=== PATIENT | male | born 1945 | race Caucasian/White ===

== ENCOUNTER 2017-04-21 06:52 | Inpatient (IN) | payer MEDICARE ==
[~2017-04-21 06:52] MED LIST: CEFAZOLIN 2 Gram 2 GM/50 ML BAG IVPB ONE; CELECOXIB 100 MG CAPSULE PO ONE; FAMOTIDINE 20MG TABLET PO ONE; MECLIZINE 25 MG TABLET PO ONE; METOCLOPRAMIDE 10 MG TABLET PO ONE; VANCOMYCIN HCL 1,000 MG in 0.9 % SODIUM CHLORIDE 250ML 250 ML IVPB ONE
[2017-04-21 07:18] LABS: URINE APPEARANCE CLEAR; URINE BILIRUBIN NEGATIVE (NEGATIVE); URINE BLOOD NEGATIVE (NEGATIVE); URINE COLOR YELLOW; URINE GLUCOSE (UA) NEGATIVE (NEGATIVE); URINE KETONE NEGATIVE (NEGATIVE); URINE LEUKOCYTE ESTERASE NEGATIVE (NEGATIVE); URINE NITRITE NEGATIVE (NEGATIVE); URINE PROTEIN NEGATIVE (NEGATIVE); URINE UROBILINOGEN 0.2 E.U./dL (0.20 - 1.00)
[2017-04-21 07:58] LABS: ABO GROUP A; ANTIBODY SCREEN NEGATIVE (NEGATIVE); RH TYPE POSITIVE
[2017-04-21] MEDS ORDERED: BISACODYL 10 MG SUPP RC PRN (10:49)
[2017-04-21] MEDS ORDERED: DIPHENHYDRAMINE HCL 25 MG CAPSULE PO PRN (10:49)
[2017-04-21] MEDS ORDERED: NALOXONE 0.4 MG/1 ML VIAL IVP PRN (10:49)
[2017-04-21] MEDS ORDERED: ACETAMINOPHEN 325 MG TAB PO PRN (10:49)
[2017-04-21] MEDS ORDERED: TRAMADOL HCL 50 MG TABLET PO PRN (10:49)
[2017-04-21] MEDS ORDERED: ACETAMINOPHEN W/ CODEINE 300MG/60MG TABLET PO PRN ×2 (10:49)
[2017-04-21] MEDS ORDERED: ZOLPIDEM TARTRATE 5 MG TABLET PO PRN (10:49)
[2017-04-21] MEDS ORDERED: KETOROLAC 30 MG/ML VIAL IVP PRN ×2 (10:49)
[2017-04-21] MEDS ORDERED: HYDROMORPHONE HCL 2 MG/ML VIAL IM PRN (10:49)
[2017-04-21] MEDS ORDERED: AL HYDROX/MAG HYDROX 30ML UD PO PRN (10:49)
[2017-04-21] MEDS ORDERED: HYDROCODONE/APAP 10/325 TABLET PO PRN (10:49)
[2017-04-21] MEDS ORDERED: MAGNESIUM HYDROXIDE 30 ML UDC PO PRN (10:49)
[2017-04-21] MEDS ORDERED: ONDANSETRON HCL IV 4 MG/2 ML VIAL IVP PRN (10:49)
--- NOTE | 2017-04-21 13:58 | Rehab Evaluation ---
Patient Information - Patient Information Diagnosis: DJD L knee Ordered Treatment: PT Evaluate and Treat Status: Initial Evaluation Surgery: Yes Date of Surgery: 04/21/17 Past Medical/Surgical Hx: PAST MEDICAL/SURGICAL HISTORY Past Surgical History skin grafting arms and legs c scopes prostate biopsies egd left knee arthroplasty PMH - Respiratory Hx Respiratory Disorders Yes Hx Asthma No Hx Bronchitis No Hx Chronic Obstructive No Pulmonary Disease (COPD) Hx Dyspnea No Hx Pneumonia No Hx Pulmonary Embolism No Hx Sleep Apnea Yes Hx Tuberculosis No Hx of CPAP No: machine broke and he didnt replace Hx of URI No Comment: hay fever PMH - Cardiovascular Hx Cardiovascular Disorders Yes Hx Abnormal EKG No Hx Cardiac Catheterization No Hx Chest Pain No Hx Congestive Heart Failure No Hx Deep Vein Thrombosis No Hx Edema No Hx Heart Attack No Hx Hypertension Yes: high at times no meds yet Hx Hypotension No Hx Irregular Heartbeat No Hx Palpitations No Hx Pacemaker/Defibrillator No Hx Vascular Disease No Exercise Tolerance Good Hx Transient Ischemic Attacks No (TIA) PMH - Neuro Hx Neurological Disorders Yes Hx Brain Tumor No Hx Cerebrovascular Accident No Hx Dementia No Hx Dizziness No Hx Headaches Yes: occass sinus Hx Neuropathy No Hx Parkinson's Disease No Hx Seizures No Hx Speech Problem No Hx Syncope No Hx Transient Ischemic Attacks No (TIA) PMH - GI Hx Gastrointestinal Disorders Yes Hx Abdominal Pain No Hx Celiac Disease No Hx Crohn's Disease No Hx Diverticulitis No Hx Gastrointestinal Bleed No Hx Gastroesophageal Reflux Yes Hx Hepatitis/Jaundice No Hx Hiatal Hernia No Hx Liver Disease No Hx Nausea/Vomiting No Hx Obstructive Bowel No Hx Pancreatitis No Hx Rectal Bleeding No Hx Ulcer No Hx Weight Loss/Weight Gain Yes: 20 lbs in last 2 years PMH - Hx Genitourinary Disorders Yes Hx Bladder Problem No Hx Dialysis No Hx Kidney Stones No Hx Prostate Problems Yes: slow growing prostate CA 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 several bx's Hx Renal Disease No Hx Urinary Tract Infection No PMH - Endocrine Hx Endocrine Disorders No Hx Diabetes No Hx Thyroid Disease No PMH - Musculoskeletal Hx Musculoskeletal Disorders Yes Hx Arthritis Yes Hx Back Injury No Hx Fibromyalgia No Hx Gout No Hx Musculoskeletal Disease No Hx Osteoporosis No PMH - Psych Hx Psychiatric Problems No PMH - Hematology/Oncology Hx Hematology/Oncology Yes Disorders Hx Anemia No Hx Blood Disorders No Hx Bruising No Hx Cancer Yes: low grade prostate CA Hx Chemotherapy No Hx Radiation Therapy No Hx Clotting Problems No Hx Sickle Cell Disease No Hx Unexplained Bleeding No Hx Blood Transfusion Reaction No Premorbid Status: Detail (The patient was ambulatory without device and independent with all mobility prior to surgery.) Social History: Detail (The patient)
[2017-04-21] MEDS ORDERED: TRANEXAMIC ACID 1,000 MG/10 ML ML IV ONE ×2 (14:04→16:18)
[2017-04-21] MEDS ORDERED: 0.9 % SODIUM CHLORIDE 10 ML VIAL IVP ONE (14:04)
[2017-04-21] MEDS: POTASSIUM CHLORIDE/D5-0.9%NACL 20 MEQ/1,000 ML BAG IV SCH ×2 (14:08→19:41)
--- NOTE | 2017-04-21 15:40 | Operative Note ---
DATE: 04/21/2017 PREOPERATIVE DIAGNOSIS: DEGENERATIVE JOINT DISEASE OF THE LEFT KNEE. POSTOPERATIVE DIAGNOSIS: DEGENERATIVE JOINT DISEASE OF THE LEFT KNEE. PROCEDURE: Cemented left total knee arthroplasty using [employer] II components with a size 8 Oxinium femur, size 7 tibial insert, a size 9 mm Highly Crosslinked tibial insert, and a 35 mm all-plastic patella. STAFF SURGEON: ANY WELCH M.D. ANESTHESIA: SPINAL. PREPARATION: CHLORAPREP. INDIVIDUAL CONSIDERATIONS: NONE. PROCEDURE: The patient was taken to the Operating Room and placed supine on the operating table. He had the successful induction of a spinal anesthetic. His left lower extremity was prepped and draped in the usual fashion. The patient had a midline approach to the knee. The limb was elevated and the tourniquet was inflated to 250 mmHg. Sharp dissection was carried down through the skin and subcutaneous tissues. Small veins were coagulated with a Bovie. A medial arthrotomy was performed. The patella was everted and the knee was flexed. He had exposed bone in the patellofemoral compartment primarily with some changes medially. The fat pad was resected, ACL was sacrificed, provisional anterior meniscectomies were performed, and the capsule was released from the medial proximal tibia. The initial femoral fire pilot hole was then made freehand. The intramedullary femoral cutting jig was placed and it was cut in 7 degrees of valgus and adjusted for rotation, secured with pins for a 10 mm resection. The initial transverse cut was then made. Skin guide was placed in the anterior and posterior fire pilot holes and it was found that a size 8 would be appropriate. The anterior and posterior cuts followed by chamfer cuts were made, osteophytes were removed, and a size 8 trial was placed and found to fit well. The tibia was brought forward and the remainder of the meniscal remnants were removed with a Bovie. The extra-articular tibial cutting jig was placed and it was cut in neutral with a 3-degree AP slope. Care was taken to adjust for rotation and flexion using the extra-articular alignment guide and bony landmarks. It was set for a 9 mm resection, keyed off the high lateral side, and secured with pins. When cutting the tibia, care was taken to preserve the PCL insertion on the tibia. After removing osteophytes, I was easily able to fit a size 7 baseplate, it was adjusted for rotation, and secured with pins. It was found after removing osteophytes and placing the size 7 trial and securing with pins, a 9 mm lift trial would fit appropriately with the 8 trial. There was excellent motion and stability. Ligamentous balance, rotation, and alignment were thought to be intact. The femoral fire pilot holes were impacted, and the triflange tibial stamp was impacted, and these trial components were removed. The patient had a large patella and roughly 9 mm of bone was removed with an oscillating saw and the three fire pilot holes were drilled. There was found that a size 35 would be appropriate and three fire pilot holes were drilled. After irrigation, the tourniquet was let down and hemostasis was obtained with a Bovie posteriorly then placed back up again. The knee was then thoroughly irrigated out with pulsatile Betadine and saline to remove any visual or palpable debris. Bony surfaces were then dried. A size 7 stem tibial baseplate was cemented into place, followed by impaction of a 9 mm lift tibial insert, followed by cementing in the size 8 Oxinium femur, followed by cementing of a 35 mm patella. Implant surfaces were compressed, excess cement was removed, and after the cement had set, there was excellent motion and stability, ligamentous balance, rotation alignment, and patellofemoral tracking were normal and no lateral release was required. The tourniquet was let down and hemostasis was obtained with the Bovie. Again, thorough irrigation. The patient then had the capsule closed with running #2 Quill, the subcutaneous was closed in layers with running 0 Quill, and the skin was closed with santosh. The patient did receive a gram of Tranexamic Acid preoperatively. I then mixed a gram of Tranexamic Acid with 30 mL of saline and injected into the knee through a sterile 18-gauge needle. Prior to closure, we also took 30 ml of 0.75% Marcaine with Epinephrine and infiltrated the skin and periosteum. The patient tolerated the procedure well. Needle and sponge counts were correct. Estimated blood loss was minimal, and he was taken back to the Recovery Room in good condition. There were no complications. JOB NUMBER: [id number] MTDD
[2017-04-21] MEDS ORDERED: HYDROMORPHONE HCL 2 MG/ML VIAL IV ONE (16:15)
[2017-04-21] MEDS ORDERED: LIDOCAINE 2% MDV (20MG/ML) 20ML VIAL IV ONE (16:15)
[2017-04-21] MEDS ORDERED: DIPHENHYDRAMINE HCL IV 50 MG/ML VIAL IVP ONE (16:15)
[2017-04-21] MEDS ORDERED: PROPOFOL 10 MG/ML VIAL IV ONE (16:15)
[2017-04-21] MEDS ORDERED: FENTANYL PF 100MCG/2ML VIAL IV ONE (16:15)
[2017-04-21] MEDS ORDERED: MIDAZOLAM HCL 2MG/2ML VIAL IV ONE (16:15)
[2017-04-21] MEDS ORDERED: BUPIVACAINE 0.75% W/EPI MPF 30ML VIAL IVP ONE (16:18)
[2017-04-21] MEDS: CHLORDIAZEPOXIDE 25 MG CAPSULE PO SCH ×3 (16:35→23:30)
[2017-04-21] MEDS: CEFAZOLIN 2 Gram 2 GM/50 ML BAG IVPB SCH (16:36)
[2017-04-21] MEDS: DOCUSATE SODIUM 100 MG CAPSULE PO SCH (23:30)
[2017-04-21] MEDS: HYDROMORPHONE HCL 1MG/ML **SYRINGE IM PRN (23:32)
[2017-04-22] MEDS: HYDROCODONE/APAP 10/325 TABLET PO PRN ×2 (02:45→10:28)
[2017-04-22] MEDS: CEFAZOLIN 2 Gram 2 GM/50 ML BAG IVPB SCH ×2 (02:46→08:11)
[2017-04-22] MEDS: HYDROMORPHONE HCL 1MG/ML **SYRINGE IM PRN (06:48)
[2017-04-22] MEDS: POTASSIUM CHLORIDE/D5-0.9%NACL 20 MEQ/1,000 ML BAG IV SCH (06:50)
[2017-04-22 06:51] LABS: BLOOD UREA NITROGEN 10 mg/dL (8-23); EST GLOMERULAR FILTRATION RATE > 60 mL/min; GLUCOSE,RANDOM 132 mg/dL (74-109)
[2017-04-22] MEDS ORDERED: ESOMEPRAZOLE 20 MG PO SCH (07:00)
[2017-04-22] MEDS: CHLORDIAZEPOXIDE 25 MG CAPSULE PO SCH (09:05)
[2017-04-22] MEDS: DOCUSATE SODIUM 100 MG CAPSULE PO SCH (09:05)
[2017-04-22] MEDS ORDERED: DOXYCYCLINE 100 MG PO SCH (10:00)
[2017-04-22] MEDS ORDERED: FERROUS SULFATE 325 MG TAB PO SCH (10:00)
[2017-04-22] MEDS ORDERED: RIVAROXABAN 10 MG TABLET PO SCH (10:00)
--- NOTE | 2017-04-22 10:52 | Rehab Evaluation ---
Patient Information - Patient Information Diagnosis: DJD L knee Ordered Treatment: OT Evaluate and Treat Status: Initial Evaluation Surgery: Yes Date of Surgery: 04/21/17 Past Medical/Surgical Hx: PAST MEDICAL/SURGICAL HISTORY Past Surgical History skin grafting arms and legs c scopes prostate biopsies egd left knee arthroplasty PMH - Respiratory Hx Respiratory Disorders Yes Hx Asthma No Hx Bronchitis No Hx Chronic Obstructive No Pulmonary Disease (COPD) Hx Dyspnea No Hx Pneumonia No Hx Pulmonary Embolism No Hx Sleep Apnea Yes Hx Tuberculosis No Hx of CPAP No: machine broke and he didnt replace Hx of URI No Comment: hay fever PMH - Cardiovascular Hx Cardiovascular Disorders Yes Hx Abnormal EKG No Hx Cardiac Catheterization No Hx Chest Pain No Hx Congestive Heart Failure No Hx Deep Vein Thrombosis No Hx Edema No Hx Heart Attack No Hx Hypertension Yes: high at times no meds yet Hx Hypotension No Hx Irregular Heartbeat No Hx Palpitations No Hx Pacemaker/Defibrillator No Hx Vascular Disease No Exercise Tolerance Good Hx Transient Ischemic Attacks No (TIA) PMH - Neuro Hx Neurological Disorders Yes Hx Brain Tumor No Hx Cerebrovascular Accident No Hx Dementia No Hx Dizziness No Hx Headaches Yes: occass sinus Hx Neuropathy No Hx Parkinson's Disease No Hx Seizures No Hx Speech Problem No Hx Syncope No Hx Transient Ischemic Attacks No (TIA) PMH - GI Hx Gastrointestinal Disorders Yes Hx Abdominal Pain No Hx Celiac Disease No Hx Crohn's Disease No Hx Diverticulitis No Hx Gastrointestinal Bleed No Hx Gastroesophageal Reflux Yes Hx Hepatitis/Jaundice No Hx Hiatal Hernia No Hx Liver Disease No Hx Nausea/Vomiting No Hx Obstructive Bowel No Hx Pancreatitis No Hx Rectal Bleeding No Hx Ulcer No Hx Weight Loss/Weight Gain Yes: 20 lbs in last 2 years PMH - Hx Genitourinary Disorders Yes Hx Bladder Problem No Hx Dialysis No Hx Kidney Stones No Hx Prostate Problems Yes: slow growing prostate CA 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 several bx's Hx Renal Disease No Hx Urinary Tract Infection No PMH - Endocrine Hx Endocrine Disorders No Hx Diabetes No Hx Thyroid Disease No PMH - Musculoskeletal Hx Musculoskeletal Disorders Yes Hx Arthritis Yes Hx Back Injury No Hx Fibromyalgia No Hx Gout No Hx Musculoskeletal Disease No Hx Osteoporosis No PMH - Psych Hx Psychiatric Problems No PMH - Hematology/Oncology Hx Hematology/Oncology Yes Disorders Hx Anemia No Hx Blood Disorders No Hx Bruising No Hx Cancer Yes: low grade prostate CA Hx Chemotherapy No Hx Radiation Therapy No Hx Clotting Problems No Hx Sickle Cell Disease No Hx Unexplained Bleeding No Hx Blood Transfusion Reaction No Premorbid Status: Detail (The patient was ambulatory without device and independent with all mobility and I/ADL's prior to surgery.) Social History: Detail (Pt. lives with his , who is very helpful and supportive. House has 2 step entry from garage w/ no railing, but Pt. says can use doorframe for support if needed. Pt stated his "man cave" is in the basement , but he won't be using it until his knee is ready. Bathroom has walk-in shower with HH shower head, and space to put a chair in if needed.) Precautions: [place] - Time With Patient Total Time Spent With Patient (Min): 25 Subjective Information - Subjective Information Per Patient Objective Data - Pain Pain Present: Yes (Nurse administered pain meds prior to OT session; Pt. was very painful after just participating in PT. Pt. was lethargic during session, stating d/t meds.) - Mental Status Patient Orientation: Oriented x3 - Visual Perception Appears within normal limits for therapeutic activities - ROM Within normal limits (BUE) - Strength/Tone Within normal limits (BUE MMT 5/5, except R elbow flex & ext 4/5 (Pt. stated arm is sore from IV).) - Coordination Appears within normal limits for therapeutic activities - Bed Mobility Independent - Transfers Independent (sit<>stand EOB to walker.) - Balance Balance Sitting: Good Balance Standing: Fair - Sensation Intact (BUE) - ADL's/IADL's Detail (Educ. provided in adaptive dressing techniques, and available AE. Pt. stated he prefers his assist him, and isn't interested in equipment/doesn' t need it. Pt. able to don/doff LLE sock, but requires assistance from to don L (affected) LE.) Therapy Assessment - Therapy Assessment Detail (Pt. has support and assistance from as needed, and knowledge of available AE and adaptive techniques if needed. Recommend d/c from in-pt OT services at this time.) Patient Education - Patient Education Teaching Topic: Community Resources, Equipment Use Response: Verbalize Understanding Teaching Method: Discussion Teaching Recipient: Patient, Significant Other Barriers To Learning: None (Pt. was lethargic, and stated he might not remember everything but stated she understood and would remember for him.) Prognosis - Prognosis Good Plan - Plan Occupational Therapy Plan: D/C from OT services at this time. Educ. provided to call rehab dept. with questions/concerns if needed when arrive home.
--- NOTE | 2017-04-22 10:59 | Rehab Evaluation ---
Patient Information - Patient Information Diagnosis: DJD L knee Ordered Treatment: PT Evaluate and Treat Surgery: Yes Date of Surgery: 04/21/17 Past Medical/Surgical Hx: PAST MEDICAL/SURGICAL HISTORY Past Surgical History skin grafting arms and legs c scopes prostate biopsies egd left knee arthroplasty PMH - Respiratory Hx Respiratory Disorders Yes Hx Asthma No Hx Bronchitis No Hx Chronic Obstructive No Pulmonary Disease (COPD) Hx Dyspnea No Hx Pneumonia No Hx Pulmonary Embolism No Hx Sleep Apnea Yes Hx Tuberculosis No Hx of CPAP No: machine broke and he didnt replace Hx of URI No Comment: hay fever PMH - Cardiovascular Hx Cardiovascular Disorders Yes Hx Abnormal EKG No Hx Cardiac Catheterization No Hx Chest Pain No Hx Congestive Heart Failure No Hx Deep Vein Thrombosis No Hx Edema No Hx Heart Attack No Hx Hypertension Yes: high at times no meds yet Hx Hypotension No Hx Irregular Heartbeat No Hx Palpitations No Hx Pacemaker/Defibrillator No Hx Vascular Disease No Exercise Tolerance Good Hx Transient Ischemic Attacks No (TIA) PMH - Neuro Hx Neurological Disorders Yes Hx Brain Tumor No Hx Cerebrovascular Accident No Hx Dementia No Hx Dizziness No Hx Headaches Yes: occass sinus Hx Neuropathy No Hx Parkinson's Disease No Hx Seizures No Hx Speech Problem No Hx Syncope No Hx Transient Ischemic Attacks No (TIA) PMH - GI Hx Gastrointestinal Disorders Yes Hx Abdominal Pain No Hx Celiac Disease No Hx Crohn's Disease No Hx Diverticulitis No Hx Gastrointestinal Bleed No Hx Gastroesophageal Reflux Yes Hx Hepatitis/Jaundice No Hx Hiatal Hernia No Hx Liver Disease No Hx Nausea/Vomiting No Hx Obstructive Bowel No Hx Pancreatitis No Hx Rectal Bleeding No Hx Ulcer No Hx Weight Loss/Weight Gain Yes: 20 lbs in last 2 years PMH - Hx Genitourinary Disorders Yes Hx Bladder Problem No Hx Dialysis No Hx Kidney Stones No Hx Prostate Problems Yes: slow growing prostate CA 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 several bx's Hx Renal Disease No Hx Urinary Tract Infection No PMH - Endocrine Hx Endocrine Disorders No Hx Diabetes No Hx Thyroid Disease No PMH - Musculoskeletal Hx Musculoskeletal Disorders Yes Hx Arthritis Yes Hx Back Injury No Hx Fibromyalgia No Hx Gout No Hx Musculoskeletal Disease No Hx Osteoporosis No PMH - Psych Hx Psychiatric Problems No PMH - Hematology/Oncology Hx Hematology/Oncology Yes Disorders Hx Anemia No Hx Blood Disorders No Hx Bruising No Hx Cancer Yes: low grade prostate CA Hx Chemotherapy No Hx Radiation Therapy No Hx Clotting Problems No Hx Sickle Cell Disease No Hx Unexplained Bleeding No Hx Blood Transfusion Reaction No Premorbid Status: Detail (The patient was ambulatory without device and independent with all mobility and I/ADL's prior to surgery.) Social History: Detail (Pt. lives with his , who is very helpful and supportive. House has 2 step entry from garage w/ no railing, but Pt. says can use doorframe for support if needed. Pt stated his "man cave" is in the basement , but he won't be using it until his knee is ready. Bathroom has walk-in shower with HH shower head, and space to put a chair in if needed.) Subjective Information - Subjective Information Per Patient (The patient had no complaints of pain.) Objective Data - Mental Status Patient Orientation: Oriented x3 - Visual Perception Appears within normal limits for therapeutic activities - ROM Not within normal limits (The patient's R knee ROM was flexion 90 degrees, extension 0 degrees. All other LE AROM was WNL.) - Strength/Tone Not within normal limits (The patient's L LE strength was 4+ to 5/5, R LE strength was not tested secondary to status post surgery, however the patient's strength was functional ( the patient completed a SLR).) - Bed Mobility Independent (The patient was independent with supine to and from sit transfer and supervision with toilet transfer.) - Transfers Independent (The patient was independent with sit to and from stand transfer.) - Balance Balance Sitting: Good Balance Standing: Good - Gait Detail (The patient ambulated with standard walker with supervision for safety WBAT on the RLE and verbal cues for proper walker placement a distance of 26 feet x 1,) Therapy Assessment - Therapy Assessment Detail (The patient was independent with bed mobility and transfers with verbal cues for walker placement with ambulation. Feel the patient will progress well with mobility.) Patient Education - Patient Education Teaching Topic: Exercise/Activity (The patient completed TKA exercises including ankle pumps, quad sets, gluteal sets, heel slides, hamstring sets and SLR.) Response: Return Demonstration Teaching Method: Demonstration Teaching Recipient: Patient Barriers To Learning: None Problem List - Problem List Physical Therapy Problem List: Detail (1) Decreased R knee ROM and LE strength as to be expected following surgery. 2) Non ambulatory on stairs 3) verbal cues for proper ambulation technique with walker.) Goals - Goals Physical Therapy Goals: 1) The patient will ambulate independently with appropriate assistive device on levels and stairs WBAT on the R. 2) The patient will be independent with all transfers. Prognosis - Prognosis Good Plan - Plan Physical Therapy Plan: PT 1-2 times a day for gait training, transfer training and instruction in a HEP until all inpatient PT goals are met.
--- NOTE | 2017-04-22 11:51 | Physical Therapy Tx Note ---
Physical Therapy Tx Note - Treatment Note Tolerated: Good Total Time Spent With Patient: 30 Physical Therapy Tx Note: Detail (Pt in bed upon arrival, awake/alert, cooperative for therapy; present. Supine to sit at edge of bed independently after removal of intermittent compression and cryopack. assisted pt w/getting dressed and pt independently ambulated to bathroom with standard walker. He ambulated w/standard walker from room to stairwell, down/ up three stairs, then to PACU doors, and back to room, w/CGA/SBA. Sat at edge of bed, performed 10 reps each of heel slides, LAQ, marching; back into bed independently. Reviewed gluteal, quad, hamstring isometrics. Reapplied intermittent compression and cryopack. Ensured that his walker from home fits properly. Pt and had no questions. Home therapy is scheduled for tomorrow.) Physical Therapy Problem List: Detail (1) Decreased R knee ROM and LE strength as to be expected following surgery. 2) Non ambulatory on stairs 3) verbal cues for proper ambulation technique with walker.) Physical Therapy Goals: 1) The patient will ambulate independently with appropriate assistive device on levels and stairs WBAT on the R - met. 2) The patient will be independent with all transfers -met. Prognosis: Good Physical Therapy Plan: Will check on patient this afternoon if he's not discharged by then.
--- NOTE | 2017-04-22 21:16 | Discharge Summary ---
DATE OF ADMISSION: 04/21/17 DATE OF DISCHARGE: 04/22/17 DATE OF SURGERY: 04/21/17 HISTORY: Mr. Hurtado is a delightful 71-year-old male who presents with end-stage arthrosis of his right knee. He was admitted after right total knee arthroplasty. Postoperatively, he did well. His hospital course was unremarkable. His discharge hemoglobin was 13. He did not require transfusion. DISCHARGE INSTRUCTIONS: The plan is to discharge him to home under the care of his family. Home PT and Visiting Nurse has been arranged. He will be given Xarelto followed by Aspirin for DVT prophylaxis and Hoffman for pain. He will follow-up in my office in four weeks. The Visiting Nurse will remove his sutures in two weeks. FINAL DIAGNOSIS/PRIMARY DIAGNOSIS: END-STAGE ARTHROSIS OF THE RIGHT KNEE. OPERATIONS AND PROCEDURES: CEMENTED RIGHT TOTAL KNEE ARTHROPLASTY. DISCHARGE CONDITION: GOOD. JOB NUMBER: [id number] MTDD
== END 2017-04-22 14:05 | disposition home health service (06) | DRG 470 ==
LOC: MEDSURG 06:52
PROVIDERS: ADMIT Orthopaedic Surgery; ATTEND Orthopaedic Surgery
PROC: 0SRD069 Replacement of Left Knee Joint with Oxidized Zirconium on Polyethylene Synthetic Substitute, Cemented, Open Approach (ICD-10-PCS; principal; 2017-04-21 09:00)
DX: M17.12 Unilateral primary osteoarthritis, left knee (principal); E78.00 Pure hypercholesterolemia, unspecified
CPT/HCPCS: 80048; 81003; 85014; 85018; 86850; 86900; 86901; 97110; 97165; 97530; J1170; J1200; J1885; J3480; J3490